=== PATIENT | male | born 1970 | race Two or more races ===

== ENCOUNTER 2017-04-10 13:43 | Emergency (ER) | payer SELFPAY ==
[~2017-04-10] VITALS: Ht 172.7 cm; Wt 87.1 kg
--- NOTE | 2017-04-10 14:00 | NUR ---
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 NOTED WOUND WITH ACTIVE BLEEDING. PRESSURED APPLIED. VSS
--- NOTE | 2017-04-10 14:07 | NUR ---
JERICHO DUNCAN BS
[2017-04-10] MEDS ORDERED: TDAP [DIPH/PERTUSSIS/TET] 0.5 ML VIAL IM ONE ×2 (14:08→14:30)
[2017-04-10] MEDS ORDERED: GELATIN SPONGE,ABSORBABLE 1 SPONGE SPONGE TP ONE (14:42)
--- NOTE | 2017-04-10 14:49 | NUR ---
Patient discharged to home in stable condition. Written and verbal after care instructions given. Patient verbalizes understanding of instruction.
[2017-04-10 14:50] VITALS: BP 122/68
== END 2017-04-10 14:51 | disposition home or self-care (01) ==
LOC: ER 13:45
DX: S61.301A Unspecified open wound of left index finger with damage to nail, initial encounter (principal); S61.303A Unspecified open wound of left middle finger with damage to nail, initial encounter; E11.9 Type 2 diabetes mellitus without complications; W26.0XXA Contact with knife, initial encounter; Y93.89 Activity, other specified; Y92.89 Other specified places as the place of occurrence of the external cause; Y99.8 Other external cause status
CPT/HCPCS: 73140; 90471; 90715; 99284; A4606; A6403; Z7610